=== PATIENT | male | born 1940 | race Caucasian/White ===

== ENCOUNTER 2017-12-16 15:05 | Emergency (ER) | payer BC ==
[2017-12-16 15:24] VITALS: BP 153/78
--- NOTE | 2017-12-16 15:39 | UC ---
Abdominal Pain Male HPI - HPI Summary HPI Summary: 77 yo male with left upper quadrent abd pain x weeks getting more severe and constant radiates straight thru to back f/c x 4-5 days chronic constipation no wt loss no UTI symptoms - History of Current Complaint Chief Complaint: UCAbdominalPain Stated Complaint: SKIN COMPLAINT Time Seen by Provider: 12/16/17 15:26 Hx Obtained From: Patient Onset/Duration: Gradual Onset, Lasting Weeks Timing: Constant Severity Initially: Mild Severity Currently: Moderate Pain Intensity: 6 Pain Scale Used: 0-10 Numeric Location: Discrete At: LUQ Radiates: Yes Radiates to: Back Character: Aching, Cramping Aggravating Factor(s): Movement Alleviating Factor(s): Nothing Associated Signs And Symptoms: Positive: Fever, Constipation - Allergies/Home Medications Allergies/Adverse Reactions: Allergies Allergy/AdvReac Type Severity Reaction Status Date / Time No Known Allergies Allergy Verified 12/16/17 15:24 Home Medications: Home Medications Amlodipine Besylate [Norvasc] 10 mg PO DAILY 12/16/17 [History Confirmed ] Aspirin [Adult Aspirin] 81 mg PO DAILY 12/16/17 [History Confirmed 12/16/17] Atorvastatin* [Lipitor 20 MG*] 20 mg PO DAILY 12/16/17 [History Confirmed ] Cholecalciferol TAB* [Vitamin D TAB*] 400 unit PO DAILY 12/16/17 [History Confirmed 12/16/17] Finasteride [Proscar] 5 mg PO DAILY 12/16/17 [History Confirmed 12/16/17] Losartan Potassium 100 mg PO DAILY 12/16/17 [History Confirmed 12/16/17] Metoprolol Succinate 25 mg PO DAILY 12/16/17 [History Confirmed 12/16/17] Mv-Mn/Folic Acid/Lutein/Ekw140 [Chase Multi For Men Tablet] 1 each PO DAILY 12/16 [History Confirmed 12/16/17] hydroCHLOROthiazide [Hydrochlorothiazide] 12.5 mg PO DAILY 12/16/17 [History Confirmed 12/16/17] PMH/Surg Hx/FS Hx/Imm Hx Previously Healthy: Yes Endocrine History: Dyslipidemia Cardiovascular History: Cardiac Disease, Hypertension - Surgical History Surgery Procedure, Year, and Place: SKIN LESIONS. APPENDECTOMY. SHOULDER REPLACEMENT LEFT SIDE. BILATERAL CATARACTS. CARDIAC STENTS. INGUINAL HERNIA ON RIGHT SIDE - Family History Known Family History: Positive: Hypertension - Social History Alcohol Use: None Substance Use Type: None Smoking Status (MU): Former Smoker Type: Cigars Have You Smoked in the Last Year: No When Did the Patient Quit Smoking/Using Tobacco: 40 YEARS AGO Review of Systems Constitutional: Negative Skin: Negative Eyes: Negative ENT: Negative Respiratory: Negative Cardiovascular: Negative Gastrointestinal: Abdominal Pain Genitourinary: Negative Motor: Negative Neurovascular: Negative Musculoskeletal: Negative Neurological: Negative Psychological: Negative Is Patient Immunocompromised?: No All Other Systems Reviewed And Are Negative: Yes Physical Exam Triage Information Reviewed: Yes Appearance: Well-Appearing, No Pain Distress, Well-Nourished Vital Signs: Initial Vital Signs Temp 98.8 F 12/16/17 15:16 Pulse 75 12/16/17 15:16 Resp 16 12/16/17 15:16 BP 153/78 12/16/17 15:16 Pulse Ox 96 12/16/17 15:16 Vital Signs Reviewed: Yes Eyes: Positive: Conjunctiva Clear ENT: Negative: Nasal congestion, Nasal drainage, Trismus, Muffled voice, Hoarse voice Neck: Positive: Supple, Nontender, No Lymphadenopathy Respiratory: Positive: Lungs clear, Normal breath sounds, No respiratory distress, No accessory muscle use Cardiovascular: Positive: RRR, No Murmur Abdomen Description: Positive: Other: - LUQ/?left flank mass, firm liver. Negative: Nontender, Distended, Guarding, Peritoneal Signs, Pulsatile Mass Musculoskeletal: Positive: ROM Intact, No Edema Neurological: Positive: Alert Skin Exam: Normal Diagnostics - Laboratory Diagnostic Studies Completed/Ordered: UA : trace RBCs Abd Pain Male Course/Dx - Course Course Of Treatment: I advised sending patient to the ED for a higher level of care. Worsening abd pain/palpable mass and fever,chills are all concerning. He states his son will drive him to the ER and he declined ambulance transfer. I discussed his case with Caren Messer NP at the [facility] ER and they will be expecting him. - Differential Dx/Clinical Impression Provider Diagnoses: Abdominal pain of uncertain cause Discharge - Sign-Out/Discharge Documenting (check all that apply): Discharge/Admit/Transfer - Discharge Plan Condition: Stable Disposition: TRANS HIGHER LVL OF CARE FAC Referrals: Jon Smith MD [Primary Care Provider] - Additional Instructions: TO [facility] ER for a higher level of care I spoke to Dora Messer NP and they are expecting you - Billing Disposition and Condition Condition: STABLE Disposition: [facility]
== END 2017-12-16 15:50 | disposition short-term general hospital (02) ==
LOC: UCCORT 15:05
DX: R10.12 Left upper quadrant pain (principal); Z87.891 Personal history of nicotine dependence
CPT/HCPCS: 81003; 99202; G0463

== ENCOUNTER 2022-08-26 14:10 | Inpatient (IN) ==
[2022-08-26] MEDS ORDERED: Iodixanol (CONTRAST) 320 MG/ML 100 ML SDV IV ONE (14:21)
[2022-08-26] MEDS ORDERED: Labetalol IV 5 MG/ML 20 ml VIAL IV PUSH ONE (14:24)
[2022-08-26] MEDS ORDERED: TENECTEPLASE 50 MG VIAL KIT 5 MG/ML (reconstituted) IV ONE (14:35)
[2022-08-26 14:38] LABS: Activated Partial Thrombo Time 32.6 seconds (26.0-38.0); INR 1.02 (0.88-1.18)
[2022-08-26 14:55] LABS: ABS Eosinophils 0.1 10^3/ul (0-0.6); ABS Lymphocytes 1.6 10^3/ul (1.0-4.8); ABS Monocytes 0.7 10^3/ul (0-0.8); Eosinophil % 1.8 %; Hematocrit 43 % (42-52); Lymphocyte % 29.6 %; Mean Corpuscular HGB Conc 35 g/dL (31-36); Mean Corpuscular Hemoglobin 31 pg (27-31); Mean Corpuscular Volume 90 fL (80-94); Mean Platelet Volume 9.7 fL (7.4-10.4); Nucleated Red Blood Cells % 0.1; Platelet Count 186 10^3/uL (150-450); Red Blood Count 4.85 10^6 /uL (4.18-5.48); Red Cell Distribution Width 14 % (10-15); White Blood Count 5.5 10^3/uL (3.5-10.8)
[2022-08-26 15:12] LABS: Albumin 4.1 g/dL (3.2-5.2); Albumin/Globulin Ratio 1.7 (1-3); Calcium 9.4 mg/dL (8.6-10.3); Creatinine, Serum 1.61 mg/dL (0.67-1.17); Globulin 2.4 g/dL (2-4); HDL Cholesterol 51.7 mg/dL; Total Bilirubin 0.7 mg/dL (0.2-1.0); Total Protein 6.5 g/dL (6.4-8.9); eGFR CKD-EPI 42.2 (>60)
[2022-08-26] MEDS ORDERED: Labetalol IV 5 MG/ML 20 ml VIAL IV PUSH PRN ×2 (15:45→15:53)
[2022-08-26 15:54] LABS: Potassium 4.3 mmol/L (3.5-5.0)
[2022-08-26] MEDS ORDERED: hydrALAZINE 20 mg/ml 1 ML Vial IV IV SLOW PU PRN ×2 (16:50→18:07)
[2022-08-26] MEDS ORDERED: hydrALAZINE 20 mg/ml 1 ML Vial IV IV SLOW PU ONE (16:54)
[2022-08-26 17:32] LABS: Urine Appearance Clear; Urine Bilirubin Negative (Negative); Urine Blood Negative (Negative); Urine Color Yellow; Urine Glucose Negative (Negative); Urine Ketones Negative (Negative); Urine Nitrite Negative (Negative); Urine Protein Negative (Negative); Urine Specific Gravity 1.031 (1.002-1.030); Urine Urobilinogen Negative (Negative)
[2022-08-26] MEDS: Cholecalciferol (VIT D3) 400 units TAB PO SCH (18:43)
[2022-08-26] MEDS: Acetaminophen IV 1 GM/100ML 1,000 MG/100 ML BAG IV PRN (21:23)
[2022-08-27] MEDS ORDERED: Lactated Ringers 1000 ml BAG 1,000 ML IV ONE (04:02)
[2022-08-27 08:42] LABS: ABS Lymphocytes 0.7 10^3/ul (1.0-4.8); ABS Monocytes 0.6 10^3/ul (0-0.8); ABS Neutrophils 4.5 10^3/ul (1.5-7.7); Eosinophil % 0.3 %; Hematocrit 40 % (42-52); Hemoglobin 14.1 g/dL (14.0-18.0); Lymphocyte % 12.7 %; Mean Corpuscular HGB Conc 36 g/dL (31-36); Mean Corpuscular Hemoglobin 32 pg (27-31); Mean Corpuscular Volume 88 fL (80-94); Mean Platelet Volume 9.4 fL (7.4-10.4); Nucleated Red Blood Cells % 0.1; Platelet Count 185 10^3/uL (150-450); Red Blood Count 4.49 10^6 /uL (4.18-5.48); Red Cell Distribution Width 14 % (10-15); White Blood Count 5.9 10^3/uL (3.5-10.8)
[2022-08-27 09:08] LABS: Calcium 9.2 mg/dL (8.6-10.3); Creatinine, Serum 1.11 mg/dL (0.67-1.17); Magnesium 1.7 mg/dL (1.9-2.7); Potassium 3.8 mmol/L (3.5-5.0); eGFR CKD-EPI 65.9 (>60)
[2022-08-27] MEDS: Cholecalciferol (VIT D3) 400 units TAB PO SCH (09:13)
[2022-08-27] MEDS ORDERED: Magnesium Sulfate IV 3 GM in NS 0.9% 100 ml BAG 100 ML IVPB ONE (11:21)
[2022-08-28 05:48] LABS: ABS Eosinophils 0.1 10^3/ul (0-0.6); ABS Lymphocytes 1.1 10^3/ul (1.0-4.8); ABS Monocytes 0.8 10^3/ul (0-0.8); ABS Neutrophils 4.1 10^3/ul (1.5-7.7); Hematocrit 43 % (42-52); Hemoglobin 14.3 g/dL (14.0-18.0); Lymphocyte % 18.4 %; Mean Corpuscular HGB Conc 34 g/dL (31-36); Mean Corpuscular Hemoglobin 30 pg (27-31); Mean Corpuscular Volume 90 fL (80-94); Mean Platelet Volume 9.6 fL (7.4-10.4); Nucleated Red Blood Cells % 0.1; Platelet Count 191 10^3/uL (150-450); Red Blood Count 4.73 10^6 /uL (4.18-5.48); Red Cell Distribution Width 14 % (10-15); White Blood Count 6.1 10^3/uL (3.5-10.8)
[2022-08-28 06:15] LABS: Calcium 9.6 mg/dL (8.6-10.3); Creatinine, Serum 1.09 mg/dL (0.67-1.17); Magnesium 2.2 mg/dL (1.9-2.7); Potassium 4.3 mmol/L (3.5-5.0); eGFR CKD-EPI 67.3 (>60)
[2022-08-28] MEDS: Cholecalciferol (VIT D3) 400 units TAB PO SCH (09:43)
[2022-08-29] MEDS: Acetaminophen IV 1 GM/100ML 1,000 MG/100 ML BAG IV PRN (07:11)
[2022-08-29] MEDS ORDERED: Dextrose 50% VIAL 50 ml IV PRN (07:53)
[2022-08-29] MEDS ORDERED: Dextrose 50% Syringe 50 ml 25 GM/50 ML SYRINGE IV PUSH ONE (08:20)
[2022-08-29 09:07] LABS: Calcium 9.7 mg/dL (8.6-10.3); Potassium 4.2 mmol/L (3.5-5.0)
[2022-08-29 09:13] LABS: Creatinine, Serum 1.2 mg/dL (0.67-1.17)
[2022-08-29] MEDS: Cholecalciferol (VIT D3) 400 units TAB PO SCH (09:45)
[2022-08-29] MEDS ORDERED: Lactated Ringers 1000 ml BAG 1,000 ML IV ONE (13:02)
[2022-08-29] MEDS: Lidocaine PATCH 5% PATCH TRANSDERM SCH (13:42)
[2022-08-30 08:07] LABS: ABS Eosinophils 0.1 10^3/ul (0-0.6); ABS Lymphocytes 1.1 10^3/ul (1.0-4.8); ABS Monocytes 0.9 10^3/ul (0-0.8); ABS Neutrophils 3.9 10^3/ul (1.5-7.7); Eosinophil % 1.6 %; Hematocrit 42 % (42-52); Hemoglobin 13.9 g/dL (14.0-18.0); Lymphocyte % 17.7 %; Mean Corpuscular HGB Conc 33 g/dL (31-36); Mean Corpuscular Hemoglobin 30 pg (27-31); Mean Corpuscular Volume 90 fL (80-94); Mean Platelet Volume 10.2 fL (7.4-10.4); Nucleated Red Blood Cells % 0.1; Platelet Count 179 10^3/uL (150-450); Red Blood Count 4.61 10^6 /uL (4.18-5.48); Red Cell Distribution Width 14 % (10-15)
[2022-08-30 08:21] LABS: Calcium 9.4 mg/dL (8.6-10.3); Creatinine, Serum 1.32 mg/dL (0.67-1.17); Magnesium 1.9 mg/dL (1.9-2.7); Potassium 4.4 mmol/L (3.5-5.0); eGFR CKD-EPI 53.5 (>60)
[2022-08-30] MEDS: Lidocaine PATCH 5% PATCH TRANSDERM SCH (10:08)
[2022-08-30] MEDS: Cholecalciferol (VIT D3) 400 units TAB PO SCH (10:08)
[2022-08-30 13:14] VITALS: BP 137/77
== END 2022-08-30 12:55 | DRG 62 ==
LOC: ED 14:10 → SUATTDRO 15:39 → EDHOLD 15:39 → ICU 16:13 → MEDTELE 08-27 23:45
PROVIDERS: ADMIT Surgery Surgical Critical Care; ATTEND Student in an Organized Health Care Education/Training Program

== ENCOUNTER 2022-08-30 11:12 | Inpatient (IN) ==
[2022-08-30] MEDS ORDERED: Senna TAB 8.6 mg TAB PO PRN (15:08)
[2022-08-30] MEDS ORDERED: Magnesium Hydroxide LIQ 30 ML UDC PO PRN (15:08)
[2022-08-31] MEDS: Cholecalciferol (VIT D3) 400 units TAB PO SCH (07:52)
[2022-08-31] MEDS: Aspirin EC 81 mg TAB.EC (enteric coated) PO SCH (07:52)
[2022-09-01] MEDS: Aspirin EC 81 mg TAB.EC (enteric coated) PO SCH (08:12)
[2022-09-01] MEDS: Cholecalciferol (VIT D3) 400 units TAB PO SCH (08:13)
[2022-09-02 08:10] LABS: ABS Eosinophils 0.1 10^3/ul (0-0.6); ABS Monocytes 0.5 10^3/ul (0-0.8); Eosinophil % 1.5 %; Hematocrit 45 % (42-52); Lymphocyte % 14.7 %; Mean Corpuscular HGB Conc 33 g/dL (31-36); Mean Corpuscular Hemoglobin 30 pg (27-31); Mean Corpuscular Volume 91 fL (80-94); Mean Platelet Volume 9.7 fL (7.4-10.4); Platelet Count 200 10^3/uL (150-450); Red Blood Count 4.98 10^6 /uL (4.18-5.48); Red Cell Distribution Width 14 % (10-15); White Blood Count 6.7 10^3/uL (3.5-10.8)
[2022-09-02 09:05] LABS: Albumin/Globulin Ratio 1.5 (1-3); Calcium 9.6 mg/dL (8.6-10.3); Creatinine, Serum 1.33 mg/dL (0.67-1.17); Globulin 2.7 g/dL (2-4); Potassium 4.2 mmol/L (3.5-5.0); Total Bilirubin 1.2 mg/dL (0.2-1.0); Total Protein 6.7 g/dL (6.4-8.9)
[2022-09-02] MEDS: Cholecalciferol (VIT D3) 400 units TAB PO SCH (09:51)
[2022-09-02] MEDS: Lidocaine PATCH 5% PATCH TRANSDERM SCH (09:51)
[2022-09-02] MEDS: Aspirin EC 81 mg TAB.EC (enteric coated) PO SCH (09:51)
[2022-09-03] MEDS: Aspirin EC 81 mg TAB.EC (enteric coated) PO SCH (08:54)
[2022-09-03] MEDS: Lidocaine PATCH 5% PATCH TRANSDERM SCH (08:58)
[2022-09-03] MEDS: Cholecalciferol (VIT D3) 400 units TAB PO SCH (10:24)
[2022-09-04] MEDS: Aspirin EC 81 mg TAB.EC (enteric coated) PO SCH (08:52)
[2022-09-04] MEDS: Lidocaine PATCH 5% PATCH TRANSDERM SCH (08:53)
[2022-09-04] MEDS: Cholecalciferol (VIT D3) 400 units TAB PO SCH (12:46)
[2022-09-05] MEDS: Lidocaine PATCH 5% PATCH TRANSDERM SCH (09:08)
[2022-09-05] MEDS: Cholecalciferol (VIT D3) 400 units TAB PO SCH (09:11)
[2022-09-05] MEDS: Aspirin EC 81 mg TAB.EC (enteric coated) PO SCH (09:11)
[2022-09-06] MEDS: Cholecalciferol (VIT D3) 400 units TAB PO SCH (08:22)
[2022-09-06] MEDS: Aspirin EC 81 mg TAB.EC (enteric coated) PO SCH (08:22)
[2022-09-06] MEDS: Lidocaine PATCH 5% PATCH TRANSDERM SCH (08:23)
[2022-09-07] MEDS: Cholecalciferol (VIT D3) 400 units TAB PO SCH (08:07)
[2022-09-07] MEDS: Aspirin EC 81 mg TAB.EC (enteric coated) PO SCH (08:08)
[2022-09-07] MEDS: Lidocaine PATCH 5% PATCH TRANSDERM SCH (08:09)
[2022-09-08] MEDS: Aspirin EC 81 mg TAB.EC (enteric coated) PO SCH (09:02)
[2022-09-08] MEDS: Cholecalciferol (VIT D3) 400 units TAB PO SCH (09:04)
[2022-09-08] MEDS: Lidocaine PATCH 5% PATCH TRANSDERM SCH (09:04)
[2022-09-09 06:52] LABS: ABS Eosinophils 0.1 10^3/ul (0-0.6); ABS Lymphocytes 1.1 10^3/ul (1.0-4.8); ABS Monocytes 0.6 10^3/ul (0-0.8); ABS Neutrophils 3.2 10^3/ul (1.5-7.7); Eosinophil % 1.8 %; Hematocrit 42 % (42-52); Hemoglobin 14.1 g/dL (14.0-18.0); Lymphocyte % 21.1 %; Mean Corpuscular HGB Conc 34 g/dL (31-36); Mean Corpuscular Hemoglobin 31 pg (27-31); Mean Corpuscular Volume 90 fL (80-94); Mean Platelet Volume 10.1 fL (7.4-10.4); Platelet Count 192 10^3/uL (150-450); Red Blood Count 4.63 10^6 /uL (4.18-5.48); Red Cell Distribution Width 13 % (10-15)
[2022-09-09 07:08] LABS: Albumin 3.7 g/dL (3.2-5.2); Albumin/Globulin Ratio 1.8 (1-3); Calcium 9.4 mg/dL (8.6-10.3); Creatinine, Serum 1.31 mg/dL (0.67-1.17); Globulin 2.1 g/dL (2-4); Potassium 4.2 mmol/L (3.5-5.0); Total Bilirubin 0.8 mg/dL (0.2-1.0); Total Protein 5.8 g/dL (6.4-8.9)
[2022-09-09] MEDS: Aspirin EC 81 mg TAB.EC (enteric coated) PO SCH (07:42)
[2022-09-09] MEDS: Cholecalciferol (VIT D3) 400 units TAB PO SCH (07:42)
[2022-09-09] MEDS: Lidocaine PATCH 5% PATCH TRANSDERM SCH (10:00)
[2022-09-09 15:15] VITALS: BP 120/75
== END 2022-09-09 17:05 | disposition home or self-care (01) | DRG 57 ==
LOC: PMRU 13:59
PROVIDERS: ADMIT Physical Medicine & Rehabilitation; ATTEND Physical Medicine & Rehabilitation